=== PATIENT | female | born 1985 | race Asian ===

== ENCOUNTER 2022-08-11 01:04 | Inpatient (IN) ==
[2022-08-11] MEDS ORDERED: Dibucaine 1% OINT 28.35 GM TUBE PR PRN (02:13)
[2022-08-11] MEDS ORDERED: Witch Hazel PAD JAR TOPICAL PRN (02:13)
[2022-08-11] MEDS ORDERED: Lactated Ringers 1000 ml BAG 1,000 ML IV SCH (03:00)
[2022-08-12 06:53] LABS: ABS Basophils 0.1 10^3/uL (0.0-0.1); ABS Eosinophils 0.1 10^3/uL (0.0-0.5); ABS Lymphocytes 1.8 10^3/uL (1.0-4.8); ABS Monocytes 0.8 10^3/uL (0.0-0.9); ABS Neutrophils 6.3 10^3/uL (1.5-7.6); ABS Nucleated RBC 0.01 10^3/ul; Eosinophil % 0.7 %; Hematocrit 32.3 % (35-45); Hemoglobin 11.1 g/dL (11.5-14.3); Lymphocyte % 19.7 %; Mean Corpuscular Hemoglobin 31.8 pg (27-33); Mean Corpuscular Hgb Conc 34.4 g/dL (31-36); Mean Corpuscular Volume 92.6 fL (80-97); Mean Platelet Volume 10.8 fL (7.5-11.2); Nucleated Red Blood Cells % 0.1 /100 WBC (0.0-0.4); Platelet Count 133 10^3/uL (150-450); Red Blood Count 3.49 10^6/uL (3.63-4.92); Red Cell Distribution Width 13.9 % (12-17); White Blood Count 8.9 10^3/uL (3.8-11.8)
[2022-08-12 08:56] VITALS: BP 116/84
== END 2022-08-12 12:40 | disposition home or self-care (01) | DRG 560 ==
LOC: MCHOBOUT 01:04 → MCHOB 01:05
PROVIDERS: ADMIT Registered Nurse; ATTEND Obstetrics & Gynecology